=== PATIENT | female | born 2000 | race Hispanic/Latino ===

== ENCOUNTER 2020-07-30 15:13 | Outpatient (CLI) | payer BC ==
--- NOTE | 2020-07-30 15:35 | RAD ---
Exam: XR Foot Lt 3 View STANDARD HISTORY: Left foot pain. COMPARISON: None FINDINGS: No acute fracture, dislocation, or other acute osseous abnormality is identified. IMPRESSION: No acute osseous abnormality is identified.
--- NOTE | 2020-07-30 15:43 | RAD ---
XR Heel Lt 2 View STANDARD History: Heel pain Comparison: None. Findings: No acute fracture or malalignment. Calcaneus is intact. Impression: Normal examination of the calcaneus.
== END 2020-07-30 15:14 | disposition home or self-care (01) ==
LOC: BICRAD 15:13
PROVIDERS: ATTEND Podiatrist
DX: M79.672 Pain in left foot (principal)